=== PATIENT | male | born 1970 | race Caucasian/White ===

== ENCOUNTER 2017-08-12 18:46 | Inpatient (IN) | payer OTHER ==
[2017-08-12 18:55] VITALS: BP 166/95; PULSE 77; RESP 10; RESP 25; TEMP 98.7; O2SAT 96
[2017-08-12] MEDS ORDERED: CHLORHEXIDINE GLUCONATE 2 % 1 PACK (2 CLOTHS) TOP PRN (19:15)
[2017-08-12] MEDS ORDERED: MISCELLANEOUS NURSING INFORMATION XX SCH (19:15)
[2017-08-12] MEDS ORDERED: SODIUM CHLORIDE 0.9% FLUSH 10 ML FLUSH IV FLUSH PRN (19:15)
[2017-08-12] MEDS ORDERED: ONDANSETRON HCL 4 MG/2 ML VIAL IV PUSH PRN (19:15)
[2017-08-12] MEDS ORDERED: MAGNESIUM HYDROXIDE SUSP 30 ML CUP PO PRN (19:15)
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
[2017-08-12] MEDS: IBUPROFEN 800 MG TAB PO SCH (20:00)
[2017-08-12 20:04] VITALS: BP 154/88; PULSE 83; RESP 18; TEMP 96.7; O2SAT 97
[2017-08-12] MEDS: DIAZEPAM 2 MG TAB PO SCH (20:09)
[2017-08-12] MEDS ORDERED: ENOXAPARIN SODIUM 30 MG/0.3 ML SYRINGE SQ SCH (21:00)
[2017-08-12] MEDS: DOCUSATE SODIUM 100 MG CAP PO SCH (21:00)
[2017-08-12 22:30] VITALS: BP 129/77
[2017-08-12 23:15] VITALS: BP 131/68; PULSE 88; RESP 18; TEMP 97.6; O2SAT 96
[2017-08-13] VITALS (7 sets, daily range): BP systolic 120–164; BP diastolic 70–101; PULSE 67–83; RESP 18–19; TEMP 95.7–97.6; O2SAT 97–99
[2017-08-13] MEDS: IBUPROFEN 800 MG TAB PO SCH ×4 (00:16→18:03)
[2017-08-13] MEDS: DIAZEPAM 2 MG TAB PO SCH ×3 (03:48→18:03)
[2017-08-13] MEDS: CHLORHEXIDINE GLUCONATE 2 % 1 PACK (2 CLOTHS) TOP SCH (03:49)
[2017-08-13 04:14] LABS: AUTOMATED NEUTROPHIL # 9.9 TH/MM3 (1.8-7.7); BASOPHIL # 0.1 TH/MM3 (0-0.2); BASOPHIL % 0.7 % (0.0-2.0); EOSINOPHIL % 0.1 % (0.0-4.0); HEMATOCRIT 50.8 % (39.0-51.0); HEMOGLOBIN 16.6 GM/DL (13.0-17.0); LYMPH % 8.5 % (9.0-44.0); LYMPHOCYTE # 1.1 TH/MM3 (1.0-4.8); MEAN CELL VOLUME 85.3 FL (80.0-100.0); MEAN CORPUSCULAR HEMOGLOBIN 27.9 PG (27.0-34.0); MEAN CORPUSCULAR HGB CONC 32.8 % (32.0-36.0); MONOCYTE # 1.4 TH/MM3 (0-0.9); NEUT % 79.7 % (16.0-70.0); PLATELET COUNT 194 TH/MM3 (150-450); RED BLOOD COUNT 5.96 MIL/MM3 (4.50-5.90); RED CELL DISTRIBUTION WIDTH 15.3 % (11.6-17.2); WHITE BLOOD COUNT 12.4 TH/MM3 (4.0-11.0)
[2017-08-13 04:38] LABS: CALCIUM 8.8 MG/DL (8.5-10.1); CREATININE 1.35 MG/DL (0.60-1.30)
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
[2017-08-13] MEDS ORDERED: RESP: ALBUTEROL 2.5 MG/IPRATROPIUM 0.5 MG NEB (PRN) NEB (08:00)
[2017-08-13] MEDS: DOCUSATE SODIUM 100 MG CAP PO SCH ×2 (08:01→21:00)
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
[2017-08-13] MEDS: LIDOCAINE HCL 5% PATCH T-DERMAL SCH (09:26)
[2017-08-13] MEDS: ENOXAPARIN SODIUM 30 MG/0.3 ML SYRINGE SQ SCH ×2 (09:27→21:58)
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
--- NOTE | 2017-08-13 12:39 | RADRPT ---
EXAM DATE/TIME: 08/13/2017 11:41 [facility] COMPARISON: CHEST SINGLE AP, August 13, 2017, 4:27. INDICATIONS : Chest tube removal and replacement, left. MEDICAL HISTORY : None. SURGICAL HISTORY : None. ENCOUNTER: Initial ACUITY: 1 day PAIN SCORE: 0/10 LOCATION: Bilateral chest FINDINGS: There is a moderate to large recurrent left pneumothorax at the apex measuring 4.7 cm. Left-sided angel st tube is noted. Bibasilar patchiness is noted. The heart is enlarged. CONCLUSION: 1. Moderate to large recurrent left pneumothorax at the left apex measuring 4.7 cm. 2. Bibasilar patchiness consistent with atelectasis and/or infiltrates. 3. Cardiomegaly. 1. Earl Hussein MD on August 13, 2017 at 12:35 Board Certified Radiologist. This report was verified electronically.
[2017-08-13] MEDS: MORPHINE SULFATE 2 MG/ML INJ SQ PRN (13:20)
[2017-08-13] MEDS: REMOVE OLD LIDOCAINE PATCH T-DERMAL SCH (21:00)
[2017-08-14] MEDS: DIAZEPAM 2 MG TAB PO SCH ×3 (01:11→18:05)
[2017-08-14] MEDS: IBUPROFEN 800 MG TAB PO SCH ×4 (01:15→18:06)
[2017-08-14] MEDS: CHLORHEXIDINE GLUCONATE 2 % 1 PACK (2 CLOTHS) TOP SCH (04:00)
[2017-08-14 04:49] VITALS: BP 149/97; PULSE 69; RESP 18; TEMP 96.7; O2SAT 100
--- NOTE | 2017-08-14 06:40 | RADRPT ---
EXAM DATE/TIME: 08/14/2017 05:33 [facility] COMPARISON: CHEST SINGLE AP, August 13, 2017, 11:41. INDICATIONS : Short of breath, left side chest pain, evaluate pneumothorax and chest tube on left side MEDICAL HISTORY : pneumothorax SURGICAL HISTORY : chest tube ENCOUNTER: Subsequent ACUITY: 2 days PAIN SCORE: 7/10 LOCATION: Left chest FINDINGS: The cardiac silhouette is enlarged in transverse diameter. There is left lower lobe atelectasis versu s contusion. Chest tube is present in the left apex. There is no evidence of pneumothorax. Left rib fractures and left clavicle fracture are present. CONCLUSION: 1. There is no evidence of pneumothorax. Dru Stoddard MD on August 14, 2017 at 6:37 Board Certified Radiologist. This report was verified electronically.
[2017-08-14 08:00] VITALS: BP 137/86; PULSE 74; RESP 17; TEMP 96.7; O2SAT 100
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
[2017-08-14] MEDS: ENOXAPARIN SODIUM 30 MG/0.3 ML SYRINGE SQ SCH ×2 (09:34→21:22)
[2017-08-14] MEDS: DOCUSATE SODIUM 100 MG CAP PO SCH ×2 (09:34→21:22)
[2017-08-14] MEDS: LIDOCAINE HCL 5% PATCH T-DERMAL SCH (09:35)
[2017-08-14 10:10] VITALS: O2SAT 100
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
[2017-08-14 12:00] VITALS: BP 131/74; PULSE 87; RESP 16; TEMP 98.3; O2SAT 99
[2017-08-14 16:00] VITALS: BP 138/90; PULSE 91; RESP 16; TEMP 98.5; O2SAT 99
[2017-08-14] MEDS: GABAPENTIN 300 MG CAP PO SCH (18:05)
[2017-08-14 20:45] VITALS: BP 149/97; PULSE 89; RESP 17; TEMP 97.8; O2SAT 98
[2017-08-14] MEDS: REMOVE OLD LIDOCAINE PATCH T-DERMAL SCH (21:00)
[2017-08-15] VITALS (7 sets, daily range): BP systolic 125–156; BP diastolic 76–90; PULSE 72–85; RESP 17–18; TEMP 95.6–98.4; O2SAT 95–100
[2017-08-15] MEDS: IBUPROFEN 800 MG TAB PO SCH ×5 (00:45→23:26)
[2017-08-15] MEDS: DIAZEPAM 2 MG TAB PO SCH ×3 (03:08→19:48)
--- NOTE | 2017-08-15 06:29 | RADRPT ---
EXAM DATE/TIME: 08/15/2017 05:33 [facility] COMPARISON: CHEST SINGLE AP, August 14, 2017, 5:33. INDICATIONS : Evaluate chest tube and pneumothorax on left side MEDICAL HISTORY : pneumothorax SURGICAL HISTORY : chest tube ENCOUNTER: Subsequent ACUITY: 3 days PAIN SCORE: 3/10 LOCATION: Left chest FINDINGS: The cardiac silhouette is enlarged in transverse diameter. A left chest tube is in place. There is no evidence of pneumothorax. There is decreasing left sided atelectasis. CONCLUSION: 1. There is no evidence of pneumothorax. Dru Stoddard MD on August 15, 2017 at 6:26 Board Certified Radiologist. This report was verified electronically.
[2017-08-15] MEDS ORDERED: MAGN30S PO (07:34)
[2017-08-15] MEDS ORDERED: IBUP1TAB7 PO (07:34)
[2017-08-15] MEDS ORDERED: DOCU1CAP39 PO (07:34)
[2017-08-15] MEDS: DOCUSATE SODIUM 100 MG CAP PO SCH ×2 (08:53→19:47)
[2017-08-15] MEDS: ENOXAPARIN SODIUM 30 MG/0.3 ML SYRINGE SQ SCH ×2 (08:53→19:48)
[2017-08-15] MEDS: MAGNESIUM HYDROXIDE SUSP 30 ML CUP PO SCH ×2 (08:53→19:47)
[2017-08-15] MEDS: GABAPENTIN 300 MG CAP PO SCH ×3 (08:53→18:13)
[2017-08-15] MEDS: LIDOCAINE HCL 5% PATCH T-DERMAL SCH (08:54)
[2017-08-15] MEDS: MORPHINE SULFATE 2 MG/ML INJ SQ PRN (10:55)
[2017-08-15] MEDS ORDERED: LIDO1ADH4 T-DERMAL (12:24)
[2017-08-15] MEDS ORDERED: ROBA500T PO (12:24)
[2017-08-15] MEDS ORDERED: PERC5TAB12 PO (12:24)
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
[2017-08-15] MEDS: REMOVE OLD LIDOCAINE PATCH T-DERMAL SCH (19:49)
[2017-08-16 04:40] VITALS: BP 134/79; PULSE 74; RESP 17; TEMP 96.9; O2SAT 99
[2017-08-16] MEDS: DIAZEPAM 2 MG TAB PO SCH (05:26)
[2017-08-16] MEDS: IBUPROFEN 800 MG TAB PO SCH (05:26)
--- NOTE | 2017-08-16 06:01 | RADRPT ---
EXAM DATE/TIME: 08/16/2017 05:09 [facility] COMPARISON: CHEST SINGLE AP, August 15, 2017, 5:33. INDICATIONS : Evaluate chest tube and pneumothorax on left side MEDICAL HISTORY : pneumothorax SURGICAL HISTORY : chest tube ENCOUNTER: Subsequent ACUITY: 4 - 6 days PAIN SCORE: 4/10 LOCATION: Left chest FINDINGS: The cardiac silhouette is enlarged in transverse diameter. There is left lower lobe atelectasis versu s pneumonia. There is no evidence of pneumothorax. CONCLUSION: 1. Left chest tube removed. There is no evidence of pneumothorax. Dru Stoddard MD on August 16, 2017 at 5:58 Board Certified Radiologist. This report was verified electronically.
[2017-08-16 08:00] VITALS: BP 151/89; PULSE 73; RESP 18; TEMP 96.8; O2SAT 100
[2017-08-16] MEDS: GABAPENTIN 300 MG CAP PO SCH (08:04)
[2017-08-16] MEDS: ENOXAPARIN SODIUM 30 MG/0.3 ML SYRINGE SQ SCH (08:04)
[2017-08-16] MEDS: LIDOCAINE HCL 5% PATCH T-DERMAL SCH (08:04)
[2017-08-16] MEDS: MAGNESIUM HYDROXIDE SUSP 30 ML CUP PO SCH (08:07)
[2017-08-16] MEDS: DOCUSATE SODIUM 100 MG CAP PO SCH (08:07)
[2017-08-16 12:00] VITALS: BP 147/86; PULSE 83; RESP 18; TEMP 97; O2SAT 98
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
== END 2017-08-16 13:35 | disposition home or self-care (01) | DRG 200 ==
LOC: NEPE 18:46 → NEDA 19:27 → N06B 20:28
PROVIDERS: ADMIT Surgery; ATTEND Surgery
DX: S27.0XXA Traumatic pneumothorax, initial encounter (principal); S22.42XA Multiple fractures of ribs, left side, initial encounter for closed fracture; S42.022A Displaced fracture of shaft of left clavicle, initial encounter for closed fracture; V86.56XA Driver of dirt bike or motor/cross bike injured in nontraffic accident, initial encounter
CPT/HCPCS: 71045; 80048; 85025; 94150; 94667; 94668; 99285; J1650; J2270